=== PATIENT | female | born 1950 | race Caucasian/White ===

== ENCOUNTER → 2018-05-31 11:02 | Outpatient (CLI) | payer OTHER, SELFPAY ==
--- NOTE | 2018-05-31 | DI.MG.S_ITS ---
BILATERAL DIGITAL SCREENING MAMMOGRAM 3D/2D WITH CAD WITH AUGMENTATION: 05/31/2018 CLINICAL: Patient presents for routine screening. S/P bilateral augmentation. Comparison is made to exams dated: 11/14/2015 mammogram, 12/18/2013 mammogram, and 07/12/2012 mammogram - [facility]. The tissue of both breasts is heterogeneously dense. This may lower the sensitivity of mammography. Current study was also evaluated with a Computer Aided Detection (CAD) system. Bilateral breast implants are stable. No significant masses, calcifications, or other findings are seen in either breast. There has been no significant interval change. IMPRESSION: NEGATIVE There is no mammographic evidence of malignancy. A 1 year screening mammogram is recommended. This exam was interpreted at Station ID: [id number]. NOTE: For mammograms, a report in lay terms will be sent to the patient. Approximately 15% of breast malignancies will not be visualized mammographically. In the management of a palpable breast mass, a negative mammogram must not discourage biopsy of a clinically suspicious lesion. Electronically Signed By: Yaritza herrmann/aubrey:05/31/2018 11:35:09 letter sent: Normal Exam ACR BI-RADS Category 1: Negative 3341F
== END ==
PROVIDERS: PCP Physician Assistant; Visit Provider Physician Assistant
DX: Z12.31 Encounter for screening mammogram for malignant neoplasm of breast (principal); Z98.82 Breast implant status
CPT/HCPCS: 77063; 77067

== ENCOUNTER → 2018-06-01 09:53 | Outpatient (CLI) | payer OTHER, SELFPAY ==
--- NOTE | 2018-06-01 09:55 | DI.RAD.S_ITS ---
PROCEDURE: XR CERVICAL SPINE 4V OR 5V INDICATIONS: chronic headaches TECHNIQUE: 5 views of the cervical spine were acquired. COMPARISON: None. FINDINGS: Bones: No fractures or dislocations to the C7 level. No suspicious bony lesions. In neutral position, there is straightening of cervical lordosis which may be positional or related to muscle spasm. There is slight retrolisthesis at C4-5. Multilevel degenerative disc disease C4-5, C5-6 and C6-7. There is normal range of motion between flexion and extension, with correction of the C4-5 retrolisthesis in flexion. In extension, there is approximately 2-3 mm of retrolisthesis at C3-4, C4-5, and C5-6. Soft tissues: Prevertebral soft tissues are normal in thickness. IMPRESSION: 1. Loss of cervical lordosis in neutral position. 2. Degenerative cervical disc disease C4-5, C5-6 and C6-7. 3. Mild malalignment deformities as described, likely related to degenerative facet arthropathy/ligamentous laxity. Dictated by: Steve Tsai M.D. on 06/01/2018 at 10:18 Approved by: Steve Tsai M.D. on 06/01/2018 at 10:25
== END ==
PROVIDERS: PCP Physician Assistant; Visit Provider Family Medicine
DX: R51 Headache (principal); M50.321 Other cervical disc degeneration at C4-C5 level
CPT/HCPCS: 72050

== ENCOUNTER → 2018-10-11 10:03 | Outpatient (CLI) | payer OTHER, SELFPAY ==
--- NOTE | 2018-10-11 | DI.RAD.S_ITS ---
This blank DEXA report has been sent in error by the PACS system. The correct and no complete report will be forthcoming in 1-2 days. Thank you for your patience and understanding. Dictated by: Wan Sanchez M.D. on 10/11/2018 at 12:48 Approved by: Wan Sanchez M.D. on 10/11/2018 at 12:48
== END ==
PROVIDERS: PCP Physician Assistant; Visit Provider Physician Assistant
DX: M85.851 Other specified disorders of bone density and structure, right thigh (principal); Z78.0 Asymptomatic menopausal state; E07.9 Disorder of thyroid, unspecified; Z90.722 Acquired absence of ovaries, bilateral; Z87.891 Personal history of nicotine dependence
CPT/HCPCS: 77080

== ENCOUNTER → 2020-04-23 13:41 | Outpatient (CLI) | payer OTHER, SELFPAY ==
--- NOTE | 2020-04-23 | DI.MG.S_ITS ---
BILATERAL DIGITAL SCREENING MAMMOGRAM 3D/2D WITH CAD WITH AUGMENTATION: 04/23/2020 CLINICAL: Patient presents for routine screening. S/P bilateral augmentation. Comparison is made to exams dated: 05/31/2018 mammogram - [facility], 11/14/2015 mammogram, and 12/18/2013 mammogram - [facility]. The tissue of both breasts is heterogeneously dense. This may lower the sensitivity of mammography. Current study was also evaluated with a Computer Aided Detection (CAD) system. Bilateral breast implants are stable. No significant masses, calcifications, or other findings are seen in either breast. There has been no significant interval change. IMPRESSION: NEGATIVE There is no mammographic evidence of malignancy. A 1 year screening mammogram is recommended. This exam was interpreted at Station ID: [id number]. NOTE: For mammograms, a report in lay terms will be sent to the patient. Approximately 15% of breast malignancies will not be visualized mammographically. In the management of a palpable breast mass, a negative mammogram must not discourage biopsy of a clinically suspicious lesion. Electronically Signed By: Andrzej weiss/aubrey:04/23/2020 14:17:36 letter sent: Normal Exam ACR BI-RADS Category 1: Negative 3341F
== END ==
PROVIDERS: PCP Physician Assistant; Referring Provider Physician Assistant; Visit Provider Physician Assistant
DX: Z12.31 Encounter for screening mammogram for malignant neoplasm of breast (principal); Z98.82 Breast implant status
CPT/HCPCS: 77063; 77067

== ENCOUNTER → 2021-01-27 13:01 | Outpatient (CLI) | payer OTHER, SELFPAY ==
--- NOTE | 2021-01-27 | DI.US.S_ITS ---
PROCEDURE: US RENAL COMPLETE INDICATIONS: CHRONIC KIDNEY DISEASE - STAGE 3A TECHNIQUE: Real-time scanning was performed of the kidneys and bladder, with image documentation. COMPARISON: None. FINDINGS: Kidneys: Kidneys are normal in size. Right kidney measures 10.0 cm long; left kidney measures 9.1 cm long. Right renal cortical thickness is 1.0 cm; left renal cortical thickness is 0.8 cm. Renal cortical echotexture is normal. No hydronephrosis or nephrolithiasis. No suspicious solid mass lesions. Bladder: Pre-void bladder volume is 427 mL. Post-void residual is 68 mL. Pre-void images demonstrate no intraluminal masses or stones. On pre-void images, bilateral ureteral jets are noted with color Doppler interrogation. (Of note, ureteral jets may not be detectable in up to 25% of cases due to insufficient differences in specific gravity between ureteral and bladder urine). Miscellaneous: No free pelvic fluid. IMPRESSION: No hydronephrosis or nephrolithiasis found. Mildly asymmetrically smaller left kidney when compared to the right. 68 cc postvoid residual, no bladder calculus found. Dictated by: Malik Mathews M.D. on 01/27/2021 at 15:07 Approved by: Malik Mathews M.D. on 01/27/2021 at 15:08
== END ==
PROVIDERS: PCP Internal Medicine; Referring Provider Internal Medicine; Visit Provider Internal Medicine
DX: N18.31 Chronic kidney disease, stage 3a (principal); M81.0 Age-related osteoporosis without current pathological fracture; Z13.820 Encounter for screening for osteoporosis; M85.88 Other specified disorders of bone density and structure, other site; M85.861 Other specified disorders of bone density and structure, right lower leg
CPT/HCPCS: 76770; 77080

== ENCOUNTER → 2021-12-07 11:06 | Outpatient (CLI) | payer OTHER, SELFPAY ==
--- NOTE | 2021-12-07 | DI.RAD.S_ITS ---
PROCEDURE: XR KNEE RT 1TO2V INDICATIONS: Pain in unspecified knee TECHNIQUE: 1 views of the knee were acquired. COMPARISON: None. FINDINGS: Bones: No fractures or dislocations. Moderate medial femoral tibial compartment osteoarthritic changes are seen with joint space narrowing, subchondral sclerosis and marginal osteophyte formation. No suspicious bony lesions. Soft tissues: No suspicious soft tissue calcifications. 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 No fracture or dislocation. No gross soft tissue abnormality. Dictated by: Wan Sanchez M.D. on 12/07/2021 at 14:14 Approved by: Wan Sanchez M.D. on 12/07/2021 at 14:15
--- NOTE | 2021-12-07 | DI.RAD.S_ITS ---
PROCEDURE: XR KNEE LT 1TO2V INDICATIONS: Pain in unspecified knee TECHNIQUE: 1 views of the knee were acquired. COMPARISON: None. FINDINGS: Bones: No fractures or dislocations. Mild to moderate medial femoral tibial compartment osteoarthritis is seen. No suspicious bony lesions. Soft tissues: No suspicious soft tissue calcifications. IMPRESSION: Fbja-ic-vovzkqyo left medial femoral tibial compartment osteoarthritis. No fracture or dislocation. Dictated by: Wan Sanchez M.D. on 12/07/2021 at 12:37 Approved by: Wan Sanchez M.D. on 12/07/2021 at 12:37
== END ==
PROVIDERS: PCP Internal Medicine; Referring Provider Internal Medicine; Visit Provider Internal Medicine
DX: M25.561 Pain in right knee (principal); M25.562 Pain in left knee; M17.0 Bilateral primary osteoarthritis of knee
CPT/HCPCS: 73560

== ENCOUNTER → 2021-12-24 08:18 | Outpatient (CLI) | payer OTHER, SELFPAY ==
[2021-12-24 09:14] LABS: Add Manual Diff / Slide Review NO; Basophils Absolute Auto 0 /uL (0-100); Basophils Percent Auto 0.8 % (0-2); Eosinophils Absolute Auto 100 /uL (0-450); Hematocrit 38.4 % (36-46); Hemoglobin 12.6 g/dL (12.0-16.0); Lymphocytes Absolute Auto 1600 /uL (1100-4500); Lymphocytes Percent Auto 40.7 % (25-40); Mean Corpuscular HGB Conc 32.8 % (30-36); Mean Corpuscular Hemoglobin 28.7 PG (26-34); Mean Corpuscular Volume 87.6 fL (80-100); Monocytes Absolute Auto 400 /uL (0-900); Monocytes Percent Auto 9.4 % (3-14); Neutrophils Absolute Auto 1900 /uL (1500-7000); Neutrophils Percent Auto 47.1 % (50-75); Platelet Count 344 X10^3/uL (150-400); Red Blood Cell Count 4.38 X10^6/uL (4.0-5.2); Red Cell Distribution Width 14.4 % (11.6-14.8)
[2021-12-24 09:27] LABS: Alanine Aminotransferase 17 IU/L (<35); Albumin Globulin Ratio 1.3 (1.0-2.8); Alkaline Phosphatase 74 U/L (38-126); Aspartate Aminotransferase 28 IU/L (14-36); BUN Creatinine Ratio 15.8 (6-22); Bilirubin Total 0.4 mg/dL (0.2-1.3); Blood Urea Nitrogen 18 mg/dL (7-17); Calcium 9.1 mg/dL (8.4-10.2); Carbon Dioxide 28 mmol/L (22-32); Chloride 107 mmol/L (98-107); Cholesterol 244 mg/dL (140-199); Glucose 88 mg/dL (80-110); HDL Cholesterol 88 mg/dL (40-60); HEMOLYSIS < 15 (0-50); LDL Cholesterol Calculated 128 mg/dL (<100); Phosphorous 3.8 mg/dL (2.8-4.1); Potassium 4.3 mmol/L (3.4-5.1); Sodium 141 mmol/L (137-145); Triglycerides 138 mg/dL (35-150)
[2021-12-24 09:41] LABS: Vitamin D 25 Hydroxy (D3) 34.3 ng/mL (30.0-100.0)
[2021-12-24 09:58] LABS: TSH w/ Reflex to FT4 0.27 uIU/mL (0.47-4.68)
[2021-12-24 10:19] LABS: Creatinine Urine Random 140.2 mg/dL; Protein (Total) Urine Random 7 mg/dL (0-12); Protein Creatinine Ratio Urine 0.04 GRAM/24H
[2021-12-24 10:23] LABS: Microalbumi Creatinin Ratio Ur 10.6 ug/mg CR (<30); Microalbumin Urine Random 1.5 mg/dL (0-1.6)
[2021-12-24 10:25] LABS: Free T4, Direct Thyroxine 1.65 ng/dL (0.78-2.19)
== END ==
PROVIDERS: PCP Internal Medicine; Referring Provider Internal Medicine; Visit Provider Internal Medicine
DX: E03.9 Hypothyroidism, unspecified (principal); N18.31 Chronic kidney disease, stage 3a; E78.5 Hyperlipidemia, unspecified
CPT/HCPCS: 36415; 80053; 80061; 82043; 82306; 82570; 83735; 84100; 84156; 84439; 84443; 85025

== ENCOUNTER → 2022-04-13 06:51 | Outpatient (CLI) | payer OTHER, SELFPAY ==
[2022-04-13 07:56] LABS: Add Manual Diff / Slide Review NO; Basophils Absolute Auto 0 /uL (0-100); Basophils Percent Auto 0.6 % (0-2); Eosinophils Absolute Auto 200 /uL (0-450); Eosinophils Percent Auto 2.4 % (2-4); Hematocrit 40.3 % (36-46); Hemoglobin 13.3 g/dL (12.0-16.0); Lymphocytes Absolute Auto 2300 /uL (1100-4500); Lymphocytes Percent Auto 31.8 % (25-40); Mean Corpuscular Hemoglobin 29.6 PG (26-34); Mean Corpuscular Volume 89.7 fL (80-100); Monocytes Absolute Auto 600 /uL (0-900); Monocytes Percent Auto 9.1 % (3-14); Neutrophils Absolute Auto 4000 /uL (1500-7000); Neutrophils Percent Auto 56.1 % (50-75); Platelet Count 355 X10^3/uL (150-400); Red Blood Cell Count 4.49 X10^6/uL (4.0-5.2); Red Cell Distribution Width 14.2 % (11.6-14.8); White Blood Cell Count 7.2 X10^3/uL (4.5-11.0)
[2022-04-13 08:15] LABS: Alanine Aminotransferase 16 IU/L (<35); Albumin 4.2 g/dL (3.5-5.0); Albumin Globulin Ratio 1.4 (1.0-2.8); Alkaline Phosphatase 75 U/L (38-126); Aspartate Aminotransferase 32 IU/L (14-36); BUN Creatinine Ratio 17.2 (6-22); Bilirubin Total 0.5 mg/dL (0.2-1.3); Blood Urea Nitrogen 20 mg/dL (7-17); Calcium 9.1 mg/dL (8.4-10.2); Carbon Dioxide 31 mmol/L (22-32); Chloride 105 mmol/L (98-107); Cholesterol 250 mg/dL (140-199); Estimated Glomerular Filt Rate 50 mL/min (>60); Globulin 3.1 g/dL (1.7-4.1); Glucose 88 mg/dL (80-110); HDL Cholesterol 94 mg/dL (40-60); HEMOLYSIS < 15 (0-50); LDL Cholesterol Calculated 125 mg/dL (<100); Phosphorous 3.6 mg/dL (2.8-4.1); Potassium 4.5 mmol/L (3.4-5.1); Sodium 141 mmol/L (137-145); Total Protein 7.3 g/dL (6.3-8.2); Triglycerides 154 mg/dL (35-150)
[2022-04-13 08:18] LABS: Creatinine Urine Random 78.2 mg/dL
[2022-04-13 08:21] LABS: Microalbumi Creatinin Ratio Ur 8.9 ug/mg CR (<30); Microalbumin Urine Random 0.7 mg/dL (0-1.6)
[2022-04-13 08:25] LABS: Protein (Total) Urine Random < 5 mg/dL (0-12); Protein Creatinine Ratio Urine 0.06 GRAM/24H
[2022-04-13 08:31] LABS: Vitamin D 25 Hydroxy (D3) 45.3 ng/mL (30.0-100.0)
[2022-04-13 08:47] LABS: TSH w/ Reflex to FT4 1.74 uIU/mL (0.47-4.68)
== END ==
PROVIDERS: PCP Internal Medicine; Referring Provider Internal Medicine; Visit Provider Internal Medicine
DX: E78.5 Hyperlipidemia, unspecified (principal); N18.31 Chronic kidney disease, stage 3a
CPT/HCPCS: 36415; 80053; 80061; 82043; 82306; 82570; 83735; 84100; 84156; 84443; 85025

== ENCOUNTER → 2022-04-27 12:37 | Outpatient (CLI) | payer OTHER, SELFPAY ==
--- NOTE | 2022-04-27 17:05 | DIET.CONS ---
Dietary Consultation Note Assessment: 72y [address] visit for help with diet to support CKD3 and arthritis. Pt diagnosed officially one year ago, but has been at risk for 4y due to hx hypertension and NSAID use. eGFR 50-52, Cr. 1.1-1.12, K+ WNL Nutrition Diagnosis: altered nutrition related laboratory values r/t renal dysfunction, nutrition related knowledge deficit aeb pt with CKD3, pt under impression she needs to avoid all carbs and animal protein to support current health. Interventions: 1. Using Kidney Diet placemat, educated pt on principles of renal diet pertinent to her. a) limit sodium to no more than 600mg per meal. Practiced label reading for sodium. b) limit phosphorus additives in foods. Practiced label reading to identify phos additives. c) limit fresh animal protein to 2oz per meal (half size of palm of hand) with free intake of plant based proteins. d) identified high and low potassium fruits and vegetables. Encouraged pt to freely eat low K+ choices and be mindful of high K+ choices, although pts K+ WNL at this time. e) encouraged pt to limit refined grains and sweets with focus on moderate intake high fiber whole grains. Monitoring/Evaluations: f/u three times yearly prn Electronically Signed by: Carolyn Echevarria 04/27/22 17:05 Clinical Dietitian [address] [address]
== END ==
PROVIDERS: PCP Internal Medicine; Referring Provider Internal Medicine; Visit Provider Internal Medicine
DX: I12.9 Hypertensive chronic kidney disease with stage 1 through stage 4 chronic kidney disease, or unspecified chronic kidney disease (principal); N18.30 Chronic kidney disease, stage 3 unspecified; Z71.3 Dietary counseling and surveillance; M19.90 Unspecified osteoarthritis, unspecified site
CPT/HCPCS: 97802

== ENCOUNTER → 2022-05-26 15:23 | Outpatient (CLI) | payer OTHER, SELFPAY ==
--- NOTE | 2022-05-26 15:26 | DI.MG.S_ITS ---
BILATERAL DIGITAL SCREENING MAMMOGRAM 3D/2D WITH CAD WITH AUGMENTATION: 05/26/2022 CLINICAL: Routine screening. Comparison is made to exams dated: 04/23/2020 mammogram, 05/31/2018 mammogram - [facility], and 11/14/2015 mammogram - [facility]. The tissue of both breasts is heterogeneously dense. This may lower the sensitivity of mammography. Current study was also evaluated with a Computer Aided Detection (CAD) system. Bilateral breast implants are stable. No significant masses, calcifications, or other findings are seen in either breast. There has been no significant interval change. IMPRESSION: NEGATIVE There is no mammographic evidence of malignancy. A 1 year screening mammogram is recommended. Based on the Tyrer Cuzick model (a risk assessment model) the patient's lifetime risk is 4.6% and her 10 year risk is 3.4%. According to the ACR, ACS, and NCCN guidelines, an annual breast MRI exam along with mammogram is recommended if the patient's lifetime risk is 20% or greater. This exam was interpreted at Station ID: [id number]. NOTE: For mammograms, a report in lay terms will be sent to the patient. Approximately 15% of breast malignancies will not be visualized mammographically. In the management of a palpable breast mass, a negative mammogram must not discourage biopsy of a clinically suspicious lesion. Electronically Signed By: Andrzej weiss/aubrey:05/27/2022 11:30:05 letter sent: Normal Exam ACR BI-RADS Category 1: Negative 3341F
== END ==
PROVIDERS: PCP Internal Medicine; Referring Provider Internal Medicine; Visit Provider Internal Medicine
DX: Z12.31 Encounter for screening mammogram for malignant neoplasm of breast (principal)
CPT/HCPCS: 77063; 77067

== ENCOUNTER → 2022-09-08 12:37 | Outpatient (CLI) | payer OTHER, SELFPAY ==
--- NOTE | 2022-09-08 12:41 | DI.RAD.S_ITS ---
PROCEDURE: XR CHEST 2V INDICATIONS: COUGH TECHNIQUE: 2 views of the chest were acquired. COMPARISON: None. FINDINGS: Surgical changes and devices: None. Lungs and pleura: Lungs are clear. No pleural effusions or pneumothorax. Mediastinum: Mediastinal contours are normal. Heart size is normal. Bones and chest wall: No suspicious bony abnormalities. Soft tissues appear unremarkable. IMPRESSION: No acute process. Dictated by: Steven William M.D. on 09/08/2022 at 14:12 Transcribed by: ALF on 09/08/2022 at 14:13 Approved by: Steven William M.D. on 09/08/2022 at 15:08
== END ==
PROVIDERS: PCP Internal Medicine; Referring Provider Internal Medicine; Visit Provider Internal Medicine
DX: R05.1 Acute cough (principal)
CPT/HCPCS: 71046

== ENCOUNTER → 2023-06-23 07:33 | Outpatient (CLI) | payer OTHER, SELFPAY ==
[2023-06-23 09:47] LABS: Alanine Aminotransferase 16 IU/L (<35); Albumin 3.8 g/dL (3.5-5.0); Albumin Globulin Ratio 1.4 (1.0-2.8); Alkaline Phosphatase 64 U/L (38-126); Aspartate Aminotransferase 27 IU/L (14-36); BUN Creatinine Ratio 13.9 (6-22); Bilirubin Total 0.4 mg/dL (0.2-1.3); Blood Urea Nitrogen 14 mg/dL (7-17); Calcium 9.3 mg/dL (8.4-10.2); Carbon Dioxide 28 mmol/L (22-32); Chloride 104 mmol/L (98-107); Cholesterol 242 mg/dL (140-199); Estimated Glomerular Filt Rate 59 mL/min (>60); Globulin 2.7 g/dL (1.7-4.1); Glucose 87 mg/dL (80-110); HDL Cholesterol 80 mg/dL (40-60); HEMOLYSIS < 15 (0-50); LDL Cholesterol Calculated 135 mg/dL (<100); Potassium 4.3 mmol/L (3.4-5.1); Sodium 138 mmol/L (137-145); Total Protein 6.5 g/dL (6.3-8.2); Triglycerides 135 mg/dL (35-150)
[2023-06-23 10:01] LABS: Vitamin D 25 Hydroxy (D3) 45.6 ng/mL (30.0-100.0)
[2023-06-23 10:18] LABS: TSH w/ Reflex to FT4 4.38 uIU/mL (0.47-4.68)
[2023-06-23 12:18] LABS: Creatinine Urine Random 116.3 mg/dL; Protein (Total) Urine Random 12 mg/dL (0-12)
[2023-06-23 12:22] LABS: Microalbumi Creatinin Ratio Ur 20.6 ug/mg CR (<30); Microalbumin Urine Random 2.4 mg/dL (0-1.6)
== END ==
PROVIDERS: PCP Internal Medicine; Referring Provider Internal Medicine; Visit Provider Internal Medicine
DX: E78.5 Hyperlipidemia, unspecified (principal); E55.9 Vitamin D deficiency, unspecified; R03.0 Elevated blood-pressure reading, without diagnosis of hypertension; N18.31 Chronic kidney disease, stage 3a; E03.9 Hypothyroidism, unspecified; R19.7 Diarrhea, unspecified
CPT/HCPCS: 36415; 80053; 80061; 82043; 82306; 82570; 84156; 84443

== ENCOUNTER → 2023-08-18 09:33 | Outpatient (CLI) | payer OTHER, SELFPAY ==
--- NOTE | 2023-08-18 | DI.US.S_ITS ---
PROCEDURE: US ABDOMEN COMPLETE INDICATIONS: ABDOMINAL BLOATING / DIARRHEA TECHNIQUE: Real-time scanning was performed of the abdominal and retroperitoneal organs, with image documentation. COMPARISON: [facility], US, RENAL COMPLETE, 01/27/2021, 13:17. FINDINGS: Liver: Liver is normal in size and homogeneous in echotexture. Gallbladder: No stones, wall thickening, or sonographic Gray sign. Biliary ducts: Intrahepatic bile ducts are non-dilated. Extrahepatic bile duct caliber measures 6 mm. Normal is 6-7 mm or less in diameter, or 10 mm or less post-cholecystectomy. Pancreas: Visualized portions of the pancreas are sonographically normal. Spleen: Spleen is normal in size and homogeneous in echotexture. Kidneys: Right kidney measures 9.7 cm long; left kidney measures 9.2 cm long. No hydronephrosis or nephrolithiasis. Aorta: Visualized aorta is normal in caliber at less than 3 cm. Iliacs: Proximal common iliac arteries are normal in caliber at less than 2.5 cm. IVC: Intrahepatic inferior vena cava is patent. Miscellaneous: No free abdominal fluid. IMPRESSION: No cholelithiasis or evidence of acute cholecystitis. No biliary ductal dilation demonstrated. Dictated by: Josep Barr M.D. on 08/18/2023 at 13:57 Approved by: Josep Barr M.D. on 08/18/2023 at 14:04
--- NOTE | 2023-08-18 | DI.MG.S_ITS ---
BILATERAL DIGITAL SCREENING MAMMOGRAM 3D/2D WITH CAD WITH AUGMENTATION: 08/18/2023 CLINICAL: Routine screening. Comparison is made to exams dated: 05/26/2022 mammogram, 04/23/2020 mammogram, and 05/31/2018 mammogram - [facility]. Both breasts are heterogeneously dense, which may obscure small masses (category c / 51-75% glandular tissue). Current study was also evaluated with a Computer Aided Detection (CAD) system. Bilateral breast implants are stable. No significant masses, calcifications, or other findings are seen in either breast. There has been no significant interval change. IMPRESSION: NEGATIVE There is no mammographic evidence of malignancy. A 1 year screening mammogram is recommended. Based on the Tyrer Cuzick model (a risk assessment model) the patient's lifetime risk is 4.3% and her 10 year risk is 3.6%. According to the ACR, ACS, and NCCN guidelines, an annual breast MRI exam along with mammogram is recommended if the patient's lifetime risk is 20% or greater. This exam was interpreted at Station ID: [id number]. NOTE: For mammograms, a report in lay terms will be sent to the patient. Approximately 15% of breast malignancies will not be visualized mammographically. In the management of a palpable breast mass, a negative mammogram must not discourage biopsy of a clinically suspicious lesion. Electronically Signed By: Josep hoover/aubrey:08/18/2023 16:19:20 letter sent: Normal Exam ACR BI-RADS Category 1: Negative 3341F
== END ==
PROVIDERS: PCP Internal Medicine; Referring Provider Internal Medicine; Visit Provider Internal Medicine
DX: Z12.31 Encounter for screening mammogram for malignant neoplasm of breast (principal); R14.0 Abdominal distension (gaseous); R19.7 Diarrhea, unspecified
CPT/HCPCS: 76700; 77063; 77067

== ENCOUNTER 2023-09-06 07:05 | Day surgery (SDC) | payer OTHER, SELFPAY ==
--- NOTE | 2023-09-06 | PATH_ITS ---
[facility] Accession Number: [id number] No. of containers..01 Tissue . 01 Material submitted: . colon - RANDOM COLON BIOPSIES . 01 Diagnosis: Random Colon, Biopsy: Incidental hyperplastic polyp. Additional colonic mucosa with no significant diagnostic alterations. No evidence of microscopic colitis. No dysplasia or malignancy. MRV 09/19/2023 1454 Local . 01 Electronically signed: . Kinza Duran MD, Pathologist NPI- [id number] . 01 Gross description: . RANDOM COLON BIOPSIES: Received in formalin are 4 fragment(s) of aaron, soft tissue measuring 0.1 x 0.1 x 0.1 cm to 0.3 x 0.2 x 0.1 cm submitted entirely in 1 cassette(s) /HORTENCIA 09/08/20237 Local . 01 Pathologist provided ICD-10: R19.7, D12.6 . 01 CPT . 549384 Specimen Comment: A courtesy copy of this report has been sent to [phone] Performed at: 01 [facility] [address] [place] [address], [place], [place] [id number] MD Sami Taylor MD Phone: [phone]
[2023-09-06 07:29] VITALS: BMI 24.7
[2023-09-06 07:39] VITALS: BP 118/80; PULSE 105; RESP 18; TEMP 36.3; O2SAT 99
[2023-09-06] MEDS: LACTATED RINGERS 1,000 ML 100 ML IV (07:45)
--- NOTE | 2023-09-06 08:17 | PM.HP.1 ---
History of Present Illness History of Present Illness Date Patient Seen: 09/06/23 Time Patient Seen: 08:17 Chief complaint: Dx Colonoscopy w/poss bx Narrative: 73-year-old woman here for screening colonoscopy. Last colonoscopy 10 years. No family history of intestinal malignancy. History of chronic diarrhea which waxes wanes currently doing well. No abdominal pain unintentional weight loss blood per rectum. PFSH Medical History Arthritis Hypercholesteremia CKD (chronic kidney disease) Hypothyroid Social History household members: none Smoking Status: Never smoker alcohol intake: never Meds Home Medications and Allergies Home Medications Medication Instructions Recorded Confirmed Type cyclobenzaprine 5 mg tablet 0.25 mg PO TID PRN Migraine 05/31/18 09/06/23 History Headache estradiol 1 mg tablet 0.5 mg PO DAILY 05/31/18 09/06/23 History levothyroxine 13 mcg capsule 0.05 mcg PO DAILY 05/31/18 09/06/23 History Allergies Allergy/AdvReac Type Severity Reaction Status Date / Time azithromycin Allergy Severe Vomiting Verified 09/06/23 07:25 Tetracyclines Allergy Unverified 09/06/23 08:17 Dairy AdvReac Mild Gastrointestinal Uncoded 06/14/18 12:55 Upset Exam Vital Signs (past 8 hours): - 09/06/23 07:39 Temperature 97.3 F L Pulse Rate 105 H Respiratory Rate 18 Blood Pressure 118/80 Pulse Oximetry 99 Oxygen Delivery Method Room Air Oxygen Delivery Method Room Air Narrative Exam Narrative: General adult woman alert oriented no acute distress Chest nonlabored respiration Extremities warm well perfused Assessment & Plan Assessment & Plan narrative: The patient requires colorectal screening and colonoscopy is recommended. Technical details were discussed. Risks, benefits, alternatives explained. Risks including but not limited to myocardial infarction, aspiration, bleeding, pain, missed lesion, incomplete examination, need for further radiographic studies, colonic perforation, and need for major abdominal surgery were discussed. All questions were answered to their satisfaction, and they are in agreement with this plan.
--- NOTE | 2023-09-06 08:19 | P.OP.COLON_ITS ---
Operative Date/Time/Diagnoses Date of procedure: 09/06/23 Time of procedure: 08:19 Pre-op diagnosis: Colorectal screening Procedure & Clinicians Study performed: Colonoscopy Same procedure as scheduled: Yes Indications: Colorectal screening Surgeon: Thierry Calabrese Procedure Notes Procedure in detail: The history and physical was performed/updated and the patient is ASA class is 2. The procedure was discussed in detail with the patient. Potential risks complications including infection, bleeding, missed diagnosis, perforation, need for surgery, and were explained. Their questions were answered and informed consent was obtained. Patient was brought to the procedure room and placed standard monitoring equipment. The patient's vital signs were monitored continuously throughout the entire procedure. Prior to starting time-out was performed. The patient was placed in the left lateral recumbent position. Procedural sedation was administered by anesthesia. Examination began with a thorough inspection of the perianal area there was no evidence of fissures, fistulae, external hemorrhoids or cutaneous malignancy. The colonoscopy scope was then placed into the anal canal and was advanced to the cecum, which was identified by the ileocecal valve , the appendiceal orifice and the confluence of the taenia. The scope was then slowly withdrawn examining colon thoroughly in all directions, irrigating it of any residual stool. The scope was retroflexed within the rectum The patient tolerated the procedure well. They will be discharged once criteria are met. The prep was of good/excellent quality. The withdrawl time was 7 minutes. FINDINGS * Unremarkable colonoscopy. No masses polyps or inflammation. * Random colonic biopsies performed with forceps Specimen(s): other (Random colonic biopsy) Impression: Normal colonoscopy Post-procedure Plan for aftercare: No further colonoscopy necessary unless symptomatic Disposition: same day surgery
[2023-09-06 08:45] VITALS: BP 103/68; PULSE 71; RESP 19; TEMP 36.2; O2SAT 94
[2023-09-06 08:50] VITALS: BP 95/69; PULSE 70; RESP 15; O2SAT 95
[2023-09-06 08:55] VITALS: BP 104/66; PULSE 74; RESP 12; TEMP 36.3; O2SAT 97
== END 2023-09-06 09:05 | disposition home or self-care (01) ==
PROVIDERS: PCP Internal Medicine; Referring Provider Surgery; Visit Provider Surgery
PROC: 0DJD8ZZ Inspection of Lower Intestinal Tract, Via Natural or Artificial Opening Endoscopic (ICD-10-PCS; CPT 45378; principal; 2023-09-06 08:15)
DX: Z12.11 Encounter for screening for malignant neoplasm of colon (principal); K63.5 Polyp of colon
CPT/HCPCS: 45380

== ENCOUNTER → 2024-05-11 08:20 | Outpatient (CLI) | payer OTHER, SELFPAY ==
[2024-05-11 08:57] LABS: Add Manual Diff / Slide Review NO; Basophils Absolute Auto 0 /uL (0-100); Basophils Percent Auto 0.5 % (0-2); Eosinophils Absolute Auto 100 /uL (0-450); Eosinophils Percent Auto 1.8 % (2-4); Hematocrit 38.1 % (36-46); Hemoglobin 12.5 g/dL (12.0-16.0); Lymphocytes Absolute Auto 1900 /uL (1100-4500); Lymphocytes Percent Auto 39.5 % (25-40); Mean Corpuscular HGB Conc 32.9 % (30-36); Mean Corpuscular Hemoglobin 29.5 PG (26-34); Mean Corpuscular Volume 89.6 fL (80-100); Monocytes Absolute Auto 500 /uL (0-900); Monocytes Percent Auto 10.9 % (3-14); Neutrophils Absolute Auto 2300 /uL (1500-7000); Neutrophils Percent Auto 47.3 % (50-75); Platelet Count 302 X10^3/uL (150-400); Red Blood Cell Count 4.25 X10^6/uL (4.0-5.2); Red Cell Distribution Width 13.7 % (11.6-14.8); White Blood Cell Count 4.8 X10^3/uL (4.5-11.0)
[2024-05-11 09:27] LABS: Alanine Aminotransferase 14 IU/L (<35); Albumin 3.9 g/dL (3.5-5.0); Albumin Globulin Ratio 1.6 (1.0-2.8); Alkaline Phosphatase 68 U/L (38-126); Aspartate Aminotransferase 28 IU/L (14-36); BUN Creatinine Ratio 13.7 (6-22); Bilirubin Total 0.5 mg/dL (0.2-1.3); Blood Urea Nitrogen 17 mg/dL (7-17); Calcium 9.1 mg/dL (8.4-10.2); Carbon Dioxide 28 mmol/L (22-32); Chloride 107 mmol/L (98-107); Cholesterol 234 mg/dL (140-199); Estimated Glomerular Filt Rate 46 mL/min (>60); Globulin 2.5 g/dL (1.7-4.1); Glucose 90 mg/dL (80-110); HDL Cholesterol 82 mg/dL (40-60); HEMOLYSIS < 15 (0-50); LDL Cholesterol Calculated 124 mg/dL (<100); Potassium 4.4 mmol/L (3.4-5.1); Sodium 140 mmol/L (137-145); Total Protein 6.4 g/dL (6.3-8.2); Triglycerides 142 mg/dL (35-150)
[2024-05-11 09:32] LABS: Vitamin D 25 Hydroxy (D3) 49.9 ng/mL (30.0-100.0)
[2024-05-11 09:58] LABS: TSH w/ Reflex to FT4 3.39 uIU/mL (0.47-4.68)
[2024-05-11 11:30] LABS: Creatinine Urine Random 272.58 mg/dL
[2024-05-11 11:35] LABS: Microalbumin Urine Random 1.7 mg/dL (0-1.6)
== END ==
PROVIDERS: PCP Internal Medicine; Referring Provider Internal Medicine; Visit Provider Internal Medicine
DX: E78.5 Hyperlipidemia, unspecified (principal); E55.9 Vitamin D deficiency, unspecified; N18.31 Chronic kidney disease, stage 3a; E03.9 Hypothyroidism, unspecified
CPT/HCPCS: 36415; 80053; 80061; 82043; 82306; 82570; 84443; 85025

== ENCOUNTER → 2024-08-21 11:06 | Outpatient (CLI) | payer OTHER, SELFPAY ==
--- NOTE | 2024-08-21 11:08 | DI.MG.S_ITS ---
BILATERAL DIGITAL SCREENING MAMMOGRAM 3D/2D WITH CAD WITH AUGMENTATION: 08/21/2024 CLINICAL: Routine screening. Comparison is made to exams dated: 08/18/2023 mammogram, 05/26/2022 mammogram, and 04/23/2020 mammogram - [facility]. The breasts are extremely dense, which lowers the sensitivity of mammography (category d />75% glandular tissue). Current study was also evaluated with a Computer Aided Detection (CAD) system. Bilateral breast implants are stable. There are benign calcifications in both breasts. No significant masses, calcifications, or other findings are seen in either breast. There has been no significant interval change. IMPRESSION: BENIGN There is no mammographic evidence of malignancy. A 1 year screening mammogram is recommended. Based on the Tyrer Cuzick model (a risk assessment model) the patient's lifetime risk is 6.1% and her 10 year risk is 5.5%. According to the ACR, ACS, and NCCN guidelines, an annual breast MRI exam along with mammogram is recommended if the patient's lifetime risk is 20% or greater. This exam was interpreted at Station ID: [id number]. NOTE: For mammograms, a report in lay terms will be sent to the patient. Approximately 15% of breast malignancies will not be visualized mammographically. In the management of a palpable breast mass, a negative mammogram must not discourage biopsy of a clinically suspicious lesion. Electronically Signed By: Cynthia cagle/aubrey:08/21/2024 18:08:48 letter sent: Normal Exam ACR BI-RADS Category 2: Benign
== END ==
PROVIDERS: PCP Internal Medicine; Referring Provider Internal Medicine; Visit Provider Internal Medicine
DX: Z12.31 Encounter for screening mammogram for malignant neoplasm of breast (principal); R92.343 Mammographic extreme density, bilateral breasts; Z98.82 Breast implant status
CPT/HCPCS: 77063; 77067

== ENCOUNTER → 2025-01-22 16:08 | Outpatient (CLI) | payer OTHER, SELFPAY ==
--- NOTE | 2025-01-22 16:09 | DI.MRI.S_ITS ---
PROCEDURE: MR CERVICAL SPINE WO CON INDICATIONS: vision changes, ocular migraine TECHNIQUE: Noncontrast sagittal T1 spin echo and T2 fast spin echo, sagittal STIR, foraminal oblique sagittal T2 fast spin echo, and axial gradient echo or T2 fast spin echo through the cervical spine. COMPARISON: [facility], MR, MR HEAD/BRAIN WO CON, 01/22/2025, 16:23. FINDINGS: Image quality: This examination is limited by involuntary motion artifact. Alignment and Curvature: There is overall straightening of the normal cervical lordosis. No focal AP alignment abnormality is seen. Bone Marrow: Marrow demonstrates normal overall signal. Spinal Cord: Visualized spinal cord has normal size and signal. No cerebellar tonsillar herniation. Paraspinous Soft Tissues: No paravertebral masses. Prevertebral soft tissues are normal in thickness. C2-C3: Mild loss of disc height is seen. Loss of disc signal is seen. A mild degree of generalized disc osteophyte complex is seen. There is moderate right-sided and mild left-sided facet hypertrophy. There is at least moderate right-sided and no significant left-sided neural foraminal narrowing. No significant central canal narrowing is seen. C3-C4: Mild loss of disc height is seen. Loss of disc signal is seen. Mild to moderate disc osteophyte complex is seen. Mild facet joint hypertrophy is seen. There is moderate right-sided and at least moderate left-sided neural foraminal narrowing. Mild central canal narrowing is seen. C4-C5: Moderate loss of disc height is seen. Loss of disc signal is seen. Reactive marrow endplate changes are seen, which are hyperintense on T1-weighted and T2-weighted imaging and most consistent with fatty metaplasia (Modic type II changes). Moderate generalized disc osteophyte complex is seen. There is a superimposed central disc osteophyte protrusion. Mild to moderate facet hypertrophy is seen. There is moderate to severe bilateral neural foraminal narrowing, left worse than right. At least moderate central canal narrowing is seen, with associated mass effect upon the ventral spinal cord, as on series 3, image 22. C5-C6: Moderate loss of disc height is seen. Loss of disc signal is seen. Moderate generalized disc osteophyte complex is seen. There is a superimposed central disc osteophyte protrusion. Mild facet joint hypertrophy can be seen. There is at least moderate right-sided and moderate to severe left-sided neural foraminal narrowing. At least moderate central canal narrowing is seen. There is associated mass effect upon the ventral spinal cord. C6-C7: Moderate loss of disc height is seen. Loss of disc signal is seen. Reactive marrow endplate changes are seen which are hypointense on T1-weighted imaging and hyperintense on T2 weighted imaging, which is most consistent with edema (Modic type I changes). Moderate generalized disc osteophyte complex is seen. There is a superimposed central disc osteophyte protrusion. Mild facet joint hypertrophy is seen. Moderate bilateral neural foraminal narrowing is seen. Moderate central canal narrowing is seen. There is associated mass effect upon the ventral spinal cord. C7-T1: [id number] loss of disc height and disc signal can be seen. A mild degree of generalized disc osteophyte complex is seen. Mild facet joint hypertrophy is seen. There is moderate left-sided and mild right-sided neural foraminal narrowing. No significant central canal narrowing is seen. IMPRESSION: Multiple levels of significant cervical spine degenerative change can be seen, which is overall worst at C5-C6. Dictated by: Jared George M.D. on 01/22/2025 at 17:31 Approved by: Jared George M.D. on 01/22/2025 at 17:35
--- NOTE | 2025-01-22 16:09 | DI.MRI.S_ITS ---
PROCEDURE: MR HEAD/BRAIN WO CON INDICATIONS: vision changes, ocular migraine TECHNIQUE: Non-contrast axial T1 spin echo, axial T2 fast spin echo, sagittal and axial FLAIR, coronal T2 fast spin echo, axial gradient echo, axial diffusion and ADC through the brain. COMPARISON: [facility], MR, MR CERVICAL SPINE WO CON, 01/22/2025, 16:40. FINDINGS: Image quality: Excellent. CSF spaces: Ventricles appear symmetric in size and shape. Basal cisterns are patent. No extra-axial fluid collections. Brain: No intracranial bleeds or mass effects. There is cerebral volume loss for age. There are periventricular and deep white matter chronic small vessel ischemic changes. Brainstem appears normal. Diffusion-weighted images show no acute infarct. No chronic ischemic insults. Normal intravascular flow voids are present. Skull and face: Calvarial bone marrow is normal in signal. Orbits are normal. Sinuses: Sinuses and mastoids are clear. IMPRESSION: No imaging explanation is found for this patient's presenting symptoms. To the limits of this noncontrast study, no findings of intracranial masses or mass effect can be seen. No findings of acute or subacute infarction can be seen. No prior territorial infarct can be seen. Dictated by: Jared George M.D. on 01/22/2025 at 17:17 Approved by: Jared George M.D. on 01/22/2025 at 17:18
== END ==
PROVIDERS: PCP Student in an Organized Health Care Education/Training Program; Referring Provider Student in an Organized Health Care Education/Training Program; Visit Provider Student in an Organized Health Care Education/Training Program
DX: G43.109 Migraine with aura, not intractable, without status migrainosus (principal); H53.9 Unspecified visual disturbance; M47.812 Spondylosis without myelopathy or radiculopathy, cervical region
CPT/HCPCS: 70551; 72141

== ENCOUNTER → 2025-05-30 06:57 | Outpatient (CLI) | payer OTHER, SELFPAY ==
[2025-05-30 08:05] LABS: Alanine Aminotransferase 14 IU/L (<35); Albumin 3.9 g/dL (3.5-5.0); Albumin Globulin Ratio 1.5 (1.0-2.8); Alkaline Phosphatase 69 U/L (38-126); Blood Urea Nitrogen 17 mg/dL (7-17); Calcium 9.2 mg/dL (8.4-10.2); Carbon Dioxide 26 mmol/L (22-32); Chloride 107 mmol/L (98-107); Cholesterol 234 mg/dL (140-199); Estimated Glomerular Filt Rate 52 mL/min (>60); Globulin 2.6 g/dL (1.7-4.1); Glucose 89 mg/dL (70-99); HDL Cholesterol 79 mg/dL (40-60); HEMOLYSIS < 15 (0-50); Potassium 4.2 mmol/L (3.4-5.1); Sodium 140 mmol/L (137-145); Total Protein 6.5 g/dL (6.3-8.2); Triglycerides 157 mg/dL (35-150)
== END ==
PROVIDERS: PCP Student in an Organized Health Care Education/Training Program; Referring Provider Student in an Organized Health Care Education/Training Program; Visit Provider Student in an Organized Health Care Education/Training Program
DX: Z00.00 Encounter for general adult medical examination without abnormal findings (principal); E78.00 Pure hypercholesterolemia, unspecified; E03.9 Hypothyroidism, unspecified
CPT/HCPCS: 36415; 80053; 80061

== ENCOUNTER → 2025-08-22 14:33 | Outpatient (CLI) | payer OTHER, SELFPAY ==
--- NOTE | 2025-08-23 15:51 | DIET.OUTPTC ---
Dietary Outpatient Consult Consult Date:08/22/25 Assessment:?75 y F referred to dietitian for Pure hypercholesterolemia, unspecified Pt reports looking for guidance on nutrition for high cholesterol and CKD3. Wants to avoid medication, PCP will recheck pts lab 4 months from now and if not controlled, encourages medication per pt report. GI symptoms: deneis N/V/D/C; lactose intolerant; takes vegan probiotic Diet Recall: B-egg, tyson/sausage, 5 grapes L-4 chunks hard salami, egg, cheese stick D-meat (ex-lambchop or fish), salad, little rice/potato Fluids:water 06/04/2509:05 Height 5 ft 2 in Weight 134 lb 2 oz BMI 24.5 Activity:trying to get into routine, considering going to [employer] or pool; no activity currently Pertinent Labs:TG 157, TC 234, LDL 124, HDL 79 Nutrition Diagnosis:? Altered nutrition related lab values (lipid panel) r/t food and nutrition related knowledge deficit aeb TG 157, TC 234, LDL 124, HDL 79 altered nutrition related lab values (GFR) r/t renal dysfunction, nutrition related knowledge deficit aeb pt with CKD3 wanting to learn about food to eat with CKD Interventions:? Discussed and provided appropriate resources on the following: -Balanced meals and snacks in line with myplate -Meaning of lab values, physio and relation to nutrition -Portion sizing -Education on label reading -Fiber, amounts, types -Fats, amounts, types -Physical activity -Lab values and correlation with nutrition -Brainstormed appropriate meal plan based on food preferences Goals: -Replace tyson/sausage with <2g SFA turkey/chk ones -Increase fruit portion at breakfast as tolerated -Use leftover low salt chk/turkey cooked at home instead of salami -Add soluble fiber rich fruit/veg at lunch (list reviewed) -Can do more CHO at dinner, 2/3 cup nicole whole grains in list provided -Reduce red meat to <2x/wk, use beans/tofu instead For CKD: Based on portion sizes, is not doing excessive protein. K+, labs as consistently WNL, can use low K+ list if K+ becomes high. Removing processed meat for less sodium. Pt with labs in 4 months. Monitoring/Evaluations:? Pt also attending cholesterol class, f/u after that Electronically Signed by: [facility] Dietitian [address] [id number]
== END ==
LOC: DIET 14:33
PROVIDERS: PCP Student in an Organized Health Care Education/Training Program; Referring Provider Student in an Organized Health Care Education/Training Program
DX: E78.00 Pure hypercholesterolemia, unspecified (principal); Z71.3 Dietary counseling and surveillance; Z68.24 Body mass index [BMI] 24.0-24.9, adult
CPT/HCPCS: 97802

== ENCOUNTER → 2025-09-13 14:05 | Outpatient (CLI) | payer OTHER, SELFPAY ==
--- NOTE | 2025-09-13 14:05 | DI.MG.S_ITS ---
MM screening mammo implant BI: 09/13/2025. BI-RADS: 2 CLINICAL: 75-year old female for bilateral screening mammogram. Tyrer-Cuzick lifetime risk of 2.6%. No personal or first-degree family history of breast cancer. History of ovarian cancer in one first-degree relative. The patient has bilateral implants. PRIOR EXAMS 08/21/2024, 08/18/2023, 05/26/2022, 04/23/2020. MAMMOGRAPHY TECHNIQUE: 2D and 3D (tomosynthesis) digital mammographic views obtained, with additional images as needed for full coverage. Current study was also evaluated with a Computer Aided Detection (CAD) system. DENSITY D. The breasts are extremely dense, which lowers the sensitivity of mammography. IMPLANTS Breast implants present. MAMMOGRAPHY FINDINGS Bilateral: There are no suspicious masses, calcifications, or other findings in the breast. IMPRESSION: * No evidence of malignancy with benign findings. RECOMMENDATIONS Bilateral * Annual screening mammography. OVERALL ASSESSMENT CATEGORY BI-RADS-2: Benign. [employer] recommends annual screening mammography beginning at age 40 for women with average risk of breast cancer. ELECTRONICALLY SIGNED: Mandy Rose M.D. on 09/15/2025 at 12:17:20 AM PT Interpreting Station ID: [id number]
== END ==
LOC: MAMMO 14:05
PROVIDERS: PCP Student in an Organized Health Care Education/Training Program; Referring Provider Student in an Organized Health Care Education/Training Program; Visit Provider Student in an Organized Health Care Education/Training Program
DX: Z12.31 Encounter for screening mammogram for malignant neoplasm of breast (principal); R92.343 Mammographic extreme density, bilateral breasts; Z98.82 Breast implant status; Z80.41 Family history of malignant neoplasm of ovary
CPT/HCPCS: 77063; 77067